=== PATIENT | female | born 1980 | race Hispanic/Latino ===

== ENCOUNTER 2020-06-11 10:17 | Outpatient (CLI) | payer BC ==
--- NOTE | 2020-06-16 09:12 | Mammography Report ---
DIGITAL SCREENING MAMMOGRAM WITH CAD, 06/16/2020 CLINICAL INFORMATION / INDICATION: Routine screening mammography. TECHNIQUE: Digital bilateral 2D mammography was obtained in the craniocaudal and mediolateral obliqu e projections. This examination was interpreted with the benefit of Computer-Aided Detection analysis . COMPARISON: This is the patient's first mammogram. FINDINGS: Breast Density: There are scattered areas of fibroglandular density. No dominant mass, suspicious calcifications, or architectural distortion in the left breast. There is a 1.4 cm oval partially well-circumscribed mass in the right breast at 11-12:00, anterior de pth. This is very superficially located. This will need further evaluation with right breast ultrasou nd, but I suspect this mass will represent a fibroadenoma. IMPRESSION: 14 mm right breast mass at 11-12:00, anterior depth. Follow up recommendation: Right breast ultrasound. BI-RADS Category 0: Incomplete. Needs additional imaging evaluation and/or prior mammograms for mikaela rison. A "normal" or negative report should not discourage follow up or biopsy of a clinically significant f inding. A written summary of these findings will be mailed to the patient. The patient will be entered into a mammography reporting system which will generate a reminder letter for the patient's next appointmen t at the appropriate interval. The [employer] recommends yearly mammograms starting at age 40 and continuing as l michael as a woman is in good health. Breast MRI is recommended for women with an approximate 20-25% or greater lifetime risk of breast cancer, including women with a strong family history of breast or [place] cancer or who have been treated for Hodgkin's disease. Signer Name: Nicole Marte MD Signed: 06/16/2020 9:07 AM Workstation Name: [email or web address]
== END 2020-06-11 10:18 | disposition home or self-care (01) ==
LOC: SPVWC 10:17
PROVIDERS: ATTEND Obstetrics & Gynecology
DX: Z12.31 Encounter for screening mammogram for malignant neoplasm of breast (principal)
CPT/HCPCS: 77067

== ENCOUNTER 2020-07-22 10:53 | Outpatient (CLI) | payer BC ==
--- NOTE | 2020-07-22 11:52 | Ultrasound Report ---
ULTRASOUND BREAST RIGHT LIMITED, 07/22/2020 CLINICAL INFORMATION / INDICATION: ABNORMAL FINDING ON MAMMO/LUMP IN R BREAST. TECHNIQUE: Targeted ultrasound evaluation was performed of the area of interest. COMPARISON: Bilateral mammography 06/11/20. FINDINGS: There is a well-circumscribed, ovoid, hypoechoic, lobulated solid nodule at the 11:00 position 3 cm f rom the nipple. This is at the site of the patient's palpable and mammographically detected abnormali ty. The longest axis parallels the skin and measures 1.3 cm. No posterior features are seen. There is mild internal vascularity on Doppler exam. No other abnormality is seen. IMPRESSION: 1.3 cm benign-appearing nodule in the right superior breast corresponds to the patient's palpable abnormality and mammographically detected nodule. The findings are probably related to a fib roadenoma in a patient in this age group. Follow up recommendation: Ultrasound BI-RADS Category 3: Probably Benign. Followup in 6 months. A normal or "negative" report should not preclude biopsy or follow-up of a clinically suspicious find ing. Signer Name: Darío Saeed MD Signed: 07/22/2020 11:48 AM Workstation Name: [email or web address]
== END 2020-07-22 10:54 | disposition home or self-care (01) ==
LOC: SPVWC 10:53
PROVIDERS: ATTEND Obstetrics & Gynecology
DX: R92.8 Other abnormal and inconclusive findings on diagnostic imaging of breast (principal)